=== PATIENT | female | born 1945 | race Caucasian/White ===

== ENCOUNTER 2021-03-08 15:39 | Inpatient (IN) ==
[2021-03-10] MEDS ORDERED: NON-FORMULARY MEDICATION 1 EACH EACH (Cefazolin [Ancef Premix 2 Gm/100 Ml] 2 GM/100 ML Bag IVPB SCH (15:45)
[2021-03-10] MEDS: *HR* Metformin 500 MG TABLET PO SCH (19:04)
[2021-03-10] MEDS: CeFAZolin 2,000 MG/120 ML BAG IVPB SCH (20:01)
[2021-03-10] MEDS: *HR* Enoxaparin 100 MG/ML SYRINGE SQ SCH (20:04)
[2021-03-11] MEDS: CeFAZolin 2,000 MG/120 ML BAG IVPB SCH ×3 (05:13→21:12)
[2021-03-11] MEDS: *HR* Enoxaparin 100 MG/ML SYRINGE SQ SCH ×2 (05:17→18:11)
[2021-03-11 06:13] LABS: Basophils % 0.3 %; Eosinophils # 0.1 K/mcL (0.0-0.6); Eosinophils % 2.4 %; Hematocrit 25.3 % (35.3-44.9); Hemoglobin 7.6 g/dL (11.5-15.4); Immature Granulocytes % 1.2 % (0-4); Lymphocytes # 1.1 K/mcL (0.6-4.6); Lymphocytes % 18.4 %; Mean Corpuscular Hemoglobin 30.4 pg (28.0-33.3); Mean Corpuscular Volume 101.2 fL (83.0-100.0); Mean Platelet Volume 9.6 fL (9.4-12.4); Monocytes # 0.3 K/mcL (0.0-1.3); Monocytes % 5.5 %; Neutrophils # 4.2 K/mcL (1.6-8.9); Platelet Count 199 K/mcL (140-400); Red Cell Distribution Width 28.8 % (11.5-14.5); Segmented Neutrophils % 72.2 %; White Blood Count 5.8 K/mcL (4.3-11.1)
[2021-03-11 06:32] LABS: BUN/Creatinine Ratio 34 (6-26); Blood Urea Nitrogen 14 mg/dL (8-23); Calcium 7.3 mg/dL (8.6-10.3); Carbon Dioxide 28 mEq/L (23-29); Chloride 102 mEq/L (98-107); Glucose 102 mg/dL (70-105); Osmolality,Calculated 285 (280-300); Potassium 3.3 mEq/L (3.5-5.1); Sodium 137 mEq/L (136-145); eGFR For African Americans > 60 (> 60); eGFR For Non-African Americans > 60 (> 60)
[2021-03-11] MEDS: *HR* Metformin 500 MG TABLET PO SCH ×2 (08:22→18:11)
[2021-03-11] MEDS: FLUoxetine 20 MG CAPSULE PO SCH (08:23)
[2021-03-11] MEDS: Furosemide 20 MG TABLET PO SCH (08:23)
[2021-03-11] MEDS: Metoprolol XL (24 HR) Succ 25 MG TAB.ER.24H PO SCH (08:23)
[2021-03-12] MEDS: CeFAZolin 2,000 MG/120 ML BAG IVPB SCH ×3 (04:46→20:27)
[2021-03-12] MEDS: *HR* Enoxaparin 100 MG/ML SYRINGE SQ SCH ×2 (04:47→17:24)
[2021-03-12 06:08] LABS: Hematocrit 24.8 % (35.3-44.9); Hemoglobin 7.2 g/dL (11.5-15.4); Mean Corpuscular Hemoglobin 30.1 pg (28.0-33.3); Mean Corpuscular Volume 103.8 fL (83.0-100.0); Mean Platelet Volume 9.8 fL (9.4-12.4); Platelet Count 192 K/mcL (140-400); Red Blood Count 2.39 M/mcL (3.82-4.97); Red Cell Distribution Width 28.1 % (11.5-14.5); White Blood Count 5.6 K/mcL (4.3-11.1)
[2021-03-12 08:30] LABS: Alanine Aminotransferase < 3 Units/L (7-52); Albumin 2.3 g/dL (3.5-5.7); Albumin/Globulin Ratio 0.8 (1.1-2.2); Alkaline Phosphatase 66 Units/L (34-104); Aspartate Amino Transferase 16 Units/L (13-39); BUN/Creatinine Ratio 40 (6-26); Blood Urea Nitrogen 17 mg/dL (8-23); Calcium 7.4 mg/dL (8.6-10.3); Carbon Dioxide 28 mEq/L (23-29); Chloride 102 mEq/L (98-107); Globulin 2.9 g/dL (2.4-3.5); Glucose 94 mg/dL (70-105); Magnesium 1.7 mg/dL (1.6-2.6); Osmolality,Calculated 283 (280-300); Potassium 3.8 mEq/L (3.5-5.1); Sodium 136 mEq/L (136-145); Total Protein 5.2 g/dL (6.4-8.9); eGFR For African Americans > 60 (> 60); eGFR For Non-African Americans > 60 (> 60)
[2021-03-12] MEDS: Furosemide 20 MG TABLET PO SCH (11:03)
[2021-03-12] MEDS: FLUoxetine 20 MG CAPSULE PO SCH (11:03)
[2021-03-12] MEDS: *HR* Metformin 500 MG TABLET PO SCH ×3 (11:03→16:35)
[2021-03-12] MEDS: Metoprolol XL (24 HR) Succ 25 MG TAB.ER.24H PO SCH (11:03)
[2021-03-13] MEDS: CeFAZolin 2,000 MG/120 ML BAG IVPB SCH ×3 (04:44→20:57)
[2021-03-13] MEDS: *HR* Enoxaparin 100 MG/ML SYRINGE SQ SCH ×2 (04:46→16:51)
[2021-03-13 07:25] LABS: Hematocrit 26.2 % (35.3-44.9); Hemoglobin 7.8 g/dL (11.5-15.4)
[2021-03-13 07:44] LABS: BUN/Creatinine Ratio 35 (6-26); Blood Urea Nitrogen 15 mg/dL (8-23); Calcium 7.6 mg/dL (8.6-10.3); Carbon Dioxide 28 mEq/L (23-29); Chloride 101 mEq/L (98-107); Glucose 99 mg/dL (70-105); Osmolality,Calculated 283 (280-300); Potassium 3.7 mEq/L (3.5-5.1); Sodium 136 mEq/L (136-145); eGFR For African Americans > 60 (> 60); eGFR For Non-African Americans > 60 (> 60)
[2021-03-13] MEDS: Metoprolol XL (24 HR) Succ 25 MG TAB.ER.24H PO SCH (09:17)
[2021-03-13] MEDS: FLUoxetine 20 MG CAPSULE PO SCH (09:17)
[2021-03-13] MEDS: *HR* Metformin 500 MG TABLET PO SCH ×2 (09:18→16:51)
[2021-03-13] MEDS: Lactobacillus 1 EACH CAP.SPRINK PO SCH (16:50)
[2021-03-13] MEDS: Ondansetron ODT 4 MG TAB.RAPDIS PO PRN (21:01)
[2021-03-14] MEDS: CeFAZolin 2,000 MG/120 ML BAG IVPB SCH ×3 (04:34→20:04)
[2021-03-14] MEDS: *HR* Enoxaparin 100 MG/ML SYRINGE SQ SCH ×2 (04:36→17:50)
[2021-03-14] MEDS: Lactobacillus 1 EACH CAP.SPRINK PO SCH (07:55)
[2021-03-14] MEDS: FLUoxetine 20 MG CAPSULE PO SCH (07:55)
[2021-03-14] MEDS: *HR* Metformin 500 MG TABLET PO SCH ×2 (07:55→14:48)
[2021-03-14] MEDS: Metoprolol XL (24 HR) Succ 25 MG TAB.ER.24H PO SCH (07:55)
[2021-03-14] MEDS ORDERED: Bisacodyl 10 MG RECTAL SUPPOSITORY RC ONE (18:00)
[2021-03-15] MEDS: CeFAZolin 2,000 MG/120 ML BAG IVPB SCH ×3 (04:21→20:08)
[2021-03-15] MEDS: *HR* Enoxaparin 100 MG/ML SYRINGE SQ SCH ×2 (04:21→17:29)
[2021-03-15 04:40] LABS: Basophils % 0.5 %; Eosinophils % 1.1 %; Hematocrit 27.1 % (35.3-44.9); Hemoglobin 8.1 g/dL (11.5-15.4); Immature Granulocytes % 1.1 % (0-4); Lymphocytes # 1.2 K/mcL (0.6-4.6); Lymphocytes % 31.7 %; Mean Corpuscular HGB Conc 29.9 g/dL (31.6-35.5); Mean Corpuscular Volume 103.8 fL (83.0-100.0); Mean Platelet Volume 9.8 fL (9.4-12.4); Monocytes # 0.4 K/mcL (0.0-1.3); Monocytes % 9.8 %; Nucleated Red Blood Cells 0.8 /100 WBC (0); Platelet Count 241 K/mcL (140-400); Red Blood Count 2.61 M/mcL (3.82-4.97); Red Cell Distribution Width 27.2 % (11.5-14.5); Segmented Neutrophils % 55.8 %; White Blood Count 3.7 K/mcL (4.3-11.1)
[2021-03-15 04:44] LABS: Neutrophils # 2.1 K/mcL (1.6-8.9)
[2021-03-15 04:47] LABS: Anisocytosis 1+ (Not Present); Platelet Estimate Normal (Normal)
[2021-03-15 04:54] LABS: BUN/Creatinine Ratio 40 (6-26); Blood Urea Nitrogen 14 mg/dL (8-23); Calcium 7.7 mg/dL (8.6-10.3); Carbon Dioxide 30 mEq/L (23-29); Chloride 99 mEq/L (98-107); Glucose 88 mg/dL (70-105); Osmolality,Calculated 278 (280-300); Potassium 3.6 mEq/L (3.5-5.1); Sodium 134 mEq/L (136-145); eGFR For African Americans > 60 (> 60); eGFR For Non-African Americans > 60 (> 60)
[2021-03-15] MEDS: *HR* Metformin 500 MG TABLET PO SCH ×2 (09:20→17:29)
[2021-03-15] MEDS: Metoprolol XL (24 HR) Succ 25 MG TAB.ER.24H PO SCH (10:29)
[2021-03-15] MEDS: Lactobacillus 1 EACH CAP.SPRINK PO SCH (10:29)
[2021-03-15] MEDS: FLUoxetine 20 MG CAPSULE PO SCH (10:29)
[2021-03-16] MEDS: CeFAZolin 2,000 MG/120 ML BAG IVPB SCH ×3 (04:48→20:32)
[2021-03-16] MEDS: *HR* Enoxaparin 100 MG/ML SYRINGE SQ SCH ×2 (04:48→17:26)
[2021-03-16] MEDS: FLUoxetine 20 MG CAPSULE PO SCH (09:20)
[2021-03-16] MEDS: Lactobacillus 1 EACH CAP.SPRINK PO SCH (09:20)
[2021-03-16] MEDS: Metoprolol XL (24 HR) Succ 25 MG TAB.ER.24H PO SCH (09:20)
[2021-03-16] MEDS: *HR* Metformin 500 MG TABLET PO SCH ×2 (09:21→17:29)
[2021-03-16] MEDS ORDERED: Ergocalciferol (VIT D2) 50,000 UNIT (1.25MG) CAP PO SCH (10:30)
[2021-03-16] MEDS: Sennosides 8.6 MG TABLET PO SCH ×2 (12:03→20:31)
[2021-03-16] MEDS ORDERED: Bisacodyl 10 MG RECTAL SUPPOSITORY RC PRN (14:08)
[2021-03-17] MEDS: *HR* Enoxaparin 100 MG/ML SYRINGE SQ SCH ×2 (04:34→16:09)
[2021-03-17] MEDS: CeFAZolin 2,000 MG/120 ML BAG IVPB SCH ×3 (04:36→20:08)
[2021-03-17] MEDS ORDERED: Patient Taking Own Medication 1 EACH PO SCH (09:00)
[2021-03-17] MEDS: Tiotropium 10 INH DOSE IH SCH (10:32)
[2021-03-17] MEDS: Lactobacillus 1 EACH CAP.SPRINK PO SCH (11:01)
[2021-03-17] MEDS: Sennosides 8.6 MG TABLET PO SCH ×2 (11:02→20:05)
[2021-03-17] MEDS: *HR* Metformin 500 MG TABLET PO SCH ×2 (11:02→16:36)
[2021-03-17] MEDS: Metoprolol XL (24 HR) Succ 25 MG TAB.ER.24H PO SCH (11:02)
[2021-03-17] MEDS: FLUoxetine 20 MG CAPSULE PO SCH (11:22)
[2021-03-17] MEDS: Bisacodyl 10 MG RECTAL SUPPOSITORY RC SCH (20:05)
[2021-03-18] MEDS: *HR* Enoxaparin 100 MG/ML SYRINGE SQ SCH ×2 (04:32→17:14)
[2021-03-18] MEDS: CeFAZolin 2,000 MG/120 ML BAG IVPB SCH ×3 (04:33→21:23)
[2021-03-18 05:59] LABS: Basophils % 0.5 %; Eosinophils % 0.5 %; Hematocrit 27.5 % (35.3-44.9); Hemoglobin 8.4 g/dL (11.5-15.4); Immature Granulocytes % 1.1 % (0-4); Lymphocytes # 1.1 K/mcL (0.6-4.6); Lymphocytes % 30.6 %; Mean Corpuscular HGB Conc 30.5 g/dL (31.6-35.5); Mean Corpuscular Hemoglobin 31.2 pg (28.0-33.3); Mean Corpuscular Volume 102.2 fL (83.0-100.0); Mean Platelet Volume 9.5 fL (9.4-12.4); Monocytes # 0.3 K/mcL (0.0-1.3); Monocytes % 7.8 %; Neutrophils # 2.2 K/mcL (1.6-8.9); Platelet Count 265 K/mcL (140-400); Red Blood Count 2.69 M/mcL (3.82-4.97); Red Cell Distribution Width 25.5 % (11.5-14.5); Segmented Neutrophils % 59.5 %; White Blood Count 3.7 K/mcL (4.3-11.1)
[2021-03-18 06:19] LABS: BUN/Creatinine Ratio 31 (6-26); Blood Urea Nitrogen 10 mg/dL (8-23); Carbon Dioxide 29 mEq/L (23-29); Chloride 100 mEq/L (98-107); Glucose 91 mg/dL (70-105); Osmolality,Calculated 281 (280-300); Potassium 2.9 mEq/L (3.5-5.1); Sodium 136 mEq/L (136-145); eGFR For African Americans > 60 (> 60); eGFR For Non-African Americans > 60 (> 60)
[2021-03-18] MEDS: *HR* Metformin 500 MG TABLET PO SCH ×2 (09:52→16:57)
[2021-03-18] MEDS: Sennosides 8.6 MG TABLET PO SCH ×2 (10:33→21:23)
[2021-03-18] MEDS: BuPROPion XL (24 HR) 150 MG TABLET PO SCH (10:33)
[2021-03-18] MEDS: Lactobacillus 1 EACH CAP.SPRINK PO SCH (10:33)
[2021-03-18] MEDS: Metoprolol XL (24 HR) Succ 25 MG TAB.ER.24H PO SCH (10:33)
[2021-03-18] MEDS: FLUoxetine 20 MG CAPSULE PO SCH (10:33)
[2021-03-18] MEDS: Bisacodyl 10 MG RECTAL SUPPOSITORY RC SCH (10:34)
[2021-03-18] MEDS: Tiotropium 10 INH DOSE IH SCH (11:04)
[2021-03-18] MEDS ORDERED: Preparation H Ointment 57 GM TUBE TP PRN (19:17)
[2021-03-19] MEDS: CeFAZolin 2,000 MG/120 ML BAG IVPB SCH ×3 (05:34→21:31)
[2021-03-19] MEDS: *HR* Enoxaparin 100 MG/ML SYRINGE SQ SCH ×2 (05:35→16:27)
[2021-03-19 06:32] LABS: Hematocrit 28.2 % (35.3-44.9); Hemoglobin 8.4 g/dL (11.5-15.4); Mean Corpuscular HGB Conc 29.8 g/dL (31.6-35.5); Mean Corpuscular Hemoglobin 31.1 pg (28.0-33.3); Mean Corpuscular Volume 104.4 fL (83.0-100.0); Mean Platelet Volume 8.7 fL (9.4-12.4); Platelet Count 322 K/mcL (140-400); Red Cell Distribution Width 25.2 % (11.5-14.5); White Blood Count 3.4 K/mcL (4.3-11.1)
[2021-03-19 07:03] LABS: Alanine Aminotransferase < 3 Units/L (7-52); Albumin 2.3 g/dL (3.5-5.7); Albumin/Globulin Ratio 0.9 (1.1-2.2); Alkaline Phosphatase 72 Units/L (34-104); Aspartate Amino Transferase 12 Units/L (13-39); BUN/Creatinine Ratio 29 (6-26); Bilirubin,Total 0.9 mg/dL (0.3-1.0); Blood Urea Nitrogen 11 mg/dL (8-23); Calcium 7.9 mg/dL (8.6-10.3); Carbon Dioxide 28 mEq/L (23-29); Chloride 101 mEq/L (98-107); Globulin 2.7 g/dL (2.4-3.5); Glucose 86 mg/dL (70-105); Magnesium 1.6 mg/dL (1.6-2.6); Osmolality,Calculated 281 (280-300); Sodium 136 mEq/L (136-145); eGFR For African Americans > 60 (> 60); eGFR For Non-African Americans > 60 (> 60)
[2021-03-19] MEDS ORDERED: Potassium Chloride Elixir 20 MEQ/15 ML UDC PO SCH (09:00)
[2021-03-19] MEDS: *HR* Metformin 500 MG TABLET PO SCH ×2 (09:07→15:30)
[2021-03-19] MEDS: Sennosides 8.6 MG TABLET PO SCH ×2 (09:12→21:32)
[2021-03-19] MEDS: Metoprolol XL (24 HR) Succ 25 MG TAB.ER.24H PO SCH (09:12)
[2021-03-19] MEDS: FLUoxetine 20 MG CAPSULE PO SCH (09:12)
[2021-03-19] MEDS: BuPROPion XL (24 HR) 150 MG TABLET PO SCH (09:12)
[2021-03-19] MEDS: Bisacodyl 10 MG RECTAL SUPPOSITORY RC SCH (09:13)
[2021-03-19] MEDS: Lactobacillus 1 EACH CAP.SPRINK PO SCH (09:13)
[2021-03-19] MEDS: Tiotropium 10 INH DOSE IH SCH (10:26)
[2021-03-19] MEDS: Potassium Chloride Elixir 20 MEQ/15 ML UDC PO SCH (11:50)
[2021-03-20] MEDS: CeFAZolin 2,000 MG/120 ML BAG IVPB SCH ×3 (04:51→20:09)
[2021-03-20] MEDS: *HR* Enoxaparin 100 MG/ML SYRINGE SQ SCH ×2 (04:52→17:28)
[2021-03-20] MEDS: Lactobacillus 1 EACH CAP.SPRINK PO SCH (09:42)
[2021-03-20] MEDS: BuPROPion XL (24 HR) 150 MG TABLET PO SCH (09:42)
[2021-03-20] MEDS: *HR* Metformin 500 MG TABLET PO SCH (09:43)
[2021-03-20] MEDS: Sennosides 8.6 MG TABLET PO SCH ×2 (09:43→20:08)
[2021-03-20] MEDS: Metoprolol XL (24 HR) Succ 25 MG TAB.ER.24H PO SCH (09:43)
[2021-03-20] MEDS: Potassium Chloride Elixir 20 MEQ/15 ML UDC PO SCH (09:43)
[2021-03-20] MEDS: FLUoxetine 20 MG CAPSULE PO SCH (09:43)
[2021-03-20] MEDS: Bisacodyl 10 MG RECTAL SUPPOSITORY RC SCH (09:47)
[2021-03-20] MEDS: Tiotropium 10 INH DOSE IH SCH (11:10)
[2021-03-21] MEDS: CeFAZolin 2,000 MG/120 ML BAG IVPB SCH ×3 (04:52→21:00)
[2021-03-21] MEDS: *HR* Enoxaparin 100 MG/ML SYRINGE SQ SCH ×2 (05:04→15:21)
[2021-03-21 05:21] LABS: Hematocrit 28.3 % (35.3-44.9); Hemoglobin 8.4 g/dL (11.5-15.4); Mean Corpuscular HGB Conc 29.7 g/dL (31.6-35.5); Mean Corpuscular Hemoglobin 31.3 pg (28.0-33.3); Mean Corpuscular Volume 105.6 fL (83.0-100.0); Mean Platelet Volume 9.3 fL (9.4-12.4); Platelet Count 296 K/mcL (140-400); Red Blood Count 2.68 M/mcL (3.82-4.97); Red Cell Distribution Width 24.3 % (11.5-14.5); White Blood Count 4.5 K/mcL (4.3-11.1)
[2021-03-21 09:19] LABS: Alanine Aminotransferase 2 Units/L (7-52); Albumin 2.3 g/dL (3.5-5.7); Albumin/Globulin Ratio 0.9 (1.1-2.2); Alkaline Phosphatase 66 Units/L (34-104); Aspartate Amino Transferase 11 Units/L (13-39); BUN/Creatinine Ratio 23 (6-26); Bilirubin,Total 0.8 mg/dL (0.3-1.0); Blood Urea Nitrogen 8 mg/dL (8-23); Calcium 7.9 mg/dL (8.6-10.3); Carbon Dioxide 30 mEq/L (23-29); Chloride 104 mEq/L (98-107); Globulin 2.5 g/dL (2.4-3.5); Glucose 82 mg/dL (70-105); Magnesium 1.4 mg/dL (1.6-2.6); Osmolality,Calculated 285 (280-300); Potassium 3.7 mEq/L (3.5-5.1); Sodium 139 mEq/L (136-145); Total Protein 4.8 g/dL (6.4-8.9); eGFR For African Americans > 60 (> 60); eGFR For Non-African Americans > 60 (> 60)
[2021-03-21] MEDS: Tiotropium 10 INH DOSE IH SCH (10:11)
[2021-03-21] MEDS: BuPROPion XL (24 HR) 150 MG TABLET PO SCH (10:28)
[2021-03-21] MEDS: Potassium Chloride Elixir 20 MEQ/15 ML UDC PO SCH (10:28)
[2021-03-21] MEDS: FLUoxetine 20 MG CAPSULE PO SCH (10:28)
[2021-03-21] MEDS: Bisacodyl 10 MG RECTAL SUPPOSITORY RC SCH (10:29)
[2021-03-21] MEDS: Lactobacillus 1 EACH CAP.SPRINK PO SCH (10:29)
[2021-03-21] MEDS: Sennosides 8.6 MG TABLET PO SCH ×2 (10:29→21:00)
[2021-03-21] MEDS: Metoprolol XL (24 HR) Succ 25 MG TAB.ER.24H PO SCH (10:29)
[2021-03-21 17:00] LABS: Bilirubin,Urine Negative (Negative); Blood,Urine Moderate (Negative); Clarity,Urine Clear (Clear); Color,Urine Yellow (Yellow); Glucose,Urine (UA) Normal (Normal); Ketones,Urine Negative (Negative); Leukocyte Esterase,Urine Small (Negative); Nitrite,Urine Negative (Negative); PH,Urine 7.5 pH Units (5.0-8.0); Protein,Urine 30 mg/dL (Neg-Trace); Specific Gravity,Urine 1.025 (1.010-1.025); Urobilinogen,Urine Normal (Normal)
[2021-03-21 17:02] LABS: RBC,Urine 30-50 per hpf (0-3); WBC,Urine 15-30 per hpf (0-3)
[2021-03-21 17:03] LABS: Bacteria,Urine Few per hpf (None-Few); Squamous Epithelial Cell,Urine Few per hpf (None-Few)
[2021-03-21] MEDS: Magnesium Oxide 400 MG TABLET PO SCH (21:00)
[2021-03-22] MEDS: CeFAZolin 2,000 MG/120 ML BAG IVPB SCH ×3 (05:22→21:40)
[2021-03-22] MEDS: BuPROPion XL (24 HR) 150 MG TABLET PO SCH (09:53)
[2021-03-22] MEDS: Potassium Chloride Elixir 20 MEQ/15 ML UDC PO SCH (09:54)
[2021-03-22] MEDS: Magnesium Oxide 400 MG TABLET PO SCH ×2 (09:55→21:40)
[2021-03-22] MEDS: Metoprolol XL (24 HR) Succ 25 MG TAB.ER.24H PO SCH (09:55)
[2021-03-22] MEDS: FLUoxetine 20 MG CAPSULE PO SCH (09:55)
[2021-03-22] MEDS: Lactobacillus 1 EACH CAP.SPRINK PO SCH (09:55)
[2021-03-22] MEDS: Sennosides 8.6 MG TABLET PO SCH ×2 (09:55→21:40)
[2021-03-22] MEDS: *HR* Enoxaparin 100 MG/ML SYRINGE SQ SCH ×2 (09:56→15:39)
[2021-03-22] MEDS: Bisacodyl 10 MG RECTAL SUPPOSITORY RC SCH (09:56)
[2021-03-22] MEDS: Tiotropium 10 INH DOSE IH SCH (10:20)
[2021-03-23] MEDS: *HR* Enoxaparin 100 MG/ML SYRINGE SQ SCH ×2 (05:11→16:40)
[2021-03-23] MEDS: CeFAZolin 2,000 MG/120 ML BAG IVPB SCH ×3 (05:12→20:05)
[2021-03-23] MEDS: Magnesium Oxide 400 MG TABLET PO SCH ×2 (08:27→19:53)
[2021-03-23] MEDS: Sennosides 8.6 MG TABLET PO SCH (08:27)
[2021-03-23] MEDS: FLUoxetine 20 MG CAPSULE PO SCH (08:27)
[2021-03-23] MEDS: Metoprolol XL (24 HR) Succ 25 MG TAB.ER.24H PO SCH (08:27)
[2021-03-23] MEDS: Lactobacillus 1 EACH CAP.SPRINK PO SCH (08:27)
[2021-03-23] MEDS: BuPROPion XL (24 HR) 150 MG TABLET PO SCH (08:27)
[2021-03-23] MEDS: Potassium Chloride Elixir 20 MEQ/15 ML UDC PO SCH (08:28)
[2021-03-23] MEDS: Bisacodyl 10 MG RECTAL SUPPOSITORY RC SCH (08:28)
[2021-03-23] MEDS: Tiotropium 10 INH DOSE IH SCH (09:51)
[2021-03-23] MEDS ORDERED: Sennosides 8.6 MG TABLET PO PRN (12:27)
[2021-03-23] MEDS ORDERED: Bisacodyl 10 MG RECTAL SUPPOSITORY RC PRN (12:27)
[2021-03-23] MEDS: Ergocalciferol (VIT D2) 50,000 UNIT (1.25MG) CAP PO SCH ×3 (19:05→19:23)
[2021-03-24 04:51] LABS: Hematocrit 30.8 % (35.3-44.9); Hemoglobin 9.2 g/dL (11.5-15.4); Mean Corpuscular HGB Conc 29.9 g/dL (31.6-35.5); Mean Corpuscular Hemoglobin 31.8 pg (28.0-33.3); Mean Corpuscular Volume 106.6 fL (83.0-100.0); Mean Platelet Volume 9.1 fL (9.4-12.4); Platelet Count 299 K/mcL (140-400); Red Blood Count 2.89 M/mcL (3.82-4.97); Red Cell Distribution Width 22.5 % (11.5-14.5); White Blood Count 5.1 K/mcL (4.3-11.1)
[2021-03-24] MEDS: *HR* Enoxaparin 100 MG/ML SYRINGE SQ SCH ×2 (05:00→16:52)
[2021-03-24] MEDS: CeFAZolin 2,000 MG/120 ML BAG IVPB SCH ×3 (05:01→20:09)
[2021-03-24 05:22] LABS: Alanine Aminotransferase 2 Units/L (7-52); Albumin 2.5 g/dL (3.5-5.7); Alkaline Phosphatase 67 Units/L (34-104); Aspartate Amino Transferase 11 Units/L (13-39); BUN/Creatinine Ratio 30 (6-26); Bilirubin,Total 0.7 mg/dL (0.3-1.0); Blood Urea Nitrogen 11 mg/dL (8-23); Calcium 7.7 mg/dL (8.6-10.3); Carbon Dioxide 28 mEq/L (23-29); Chloride 104 mEq/L (98-107); Globulin 2.5 g/dL (2.4-3.5); Glucose 96 mg/dL (70-105); Magnesium 1.5 mg/dL (1.6-2.6); Osmolality,Calculated 285 (280-300); Potassium 3.8 mEq/L (3.5-5.1); Sodium 138 mEq/L (136-145); eGFR For African Americans > 60 (> 60); eGFR For Non-African Americans > 60 (> 60)
[2021-03-24] MEDS: Metoprolol XL (24 HR) Succ 25 MG TAB.ER.24H PO SCH (09:56)
[2021-03-24] MEDS: FLUoxetine 20 MG CAPSULE PO SCH (09:56)
[2021-03-24] MEDS: Lactobacillus 1 EACH CAP.SPRINK PO SCH (09:57)
[2021-03-24] MEDS: Magnesium Oxide 400 MG TABLET PO SCH ×2 (09:57→20:07)
[2021-03-24] MEDS: BuPROPion XL (24 HR) 150 MG TABLET PO SCH (09:57)
[2021-03-24] MEDS: Tiotropium 10 INH DOSE IH SCH (11:46)
[2021-03-24] MEDS: Fluconazole 100 MG TABLET PO SCH (16:52)
[2021-03-25] MEDS: Acetaminophen 325 MG TABLET PO PRN (04:41)
[2021-03-25] MEDS: *HR* Enoxaparin 100 MG/ML SYRINGE SQ SCH ×2 (05:06→17:27)
[2021-03-25] MEDS: FLUoxetine 20 MG CAPSULE PO SCH (09:24)
[2021-03-25] MEDS: Lactobacillus 1 EACH CAP.SPRINK PO SCH (09:24)
[2021-03-25] MEDS: BuPROPion XL (24 HR) 150 MG TABLET PO SCH (09:24)
[2021-03-25] MEDS: Fluconazole 100 MG TABLET PO SCH (09:24)
[2021-03-25] MEDS: Magnesium Oxide 400 MG TABLET PO SCH ×2 (09:24→20:05)
[2021-03-25] MEDS: Metoprolol XL (24 HR) Succ 25 MG TAB.ER.24H PO SCH (09:25)
[2021-03-25] MEDS: Tiotropium 10 INH DOSE IH SCH (11:58)
[2021-03-25] MEDS: CeFAZolin 2,000 MG/120 ML BAG IVPB SCH (17:26)
[2021-03-26] MEDS: CeFAZolin 2,000 MG/120 ML BAG IVPB SCH ×2 (01:37→08:55)
[2021-03-26] MEDS: *HR* Enoxaparin 100 MG/ML SYRINGE SQ SCH ×2 (04:28→20:37)
[2021-03-26] MEDS: Acetaminophen 325 MG TABLET PO PRN (04:30)
[2021-03-26 05:59] LABS: Hematocrit 30.1 % (35.3-44.9); Mean Corpuscular HGB Conc 29.9 g/dL (31.6-35.5); Mean Corpuscular Hemoglobin 31.6 pg (28.0-33.3); Mean Corpuscular Volume 105.6 fL (83.0-100.0); Mean Platelet Volume 9.2 fL (9.4-12.4); Platelet Count 327 K/mcL (140-400); Red Blood Count 2.85 M/mcL (3.82-4.97); Red Cell Distribution Width 21.2 % (11.5-14.5); White Blood Count 5.3 K/mcL (4.3-11.1)
[2021-03-26 06:54] LABS: Alanine Aminotransferase 2 Units/L (7-52); Albumin 2.5 g/dL (3.5-5.7); Alkaline Phosphatase 65 Units/L (34-104); Aspartate Amino Transferase 12 Units/L (13-39); BUN/Creatinine Ratio 23 (6-26); Bilirubin,Total 0.5 mg/dL (0.3-1.0); Blood Urea Nitrogen 9 mg/dL (8-23); Calcium 7.8 mg/dL (8.6-10.3); Carbon Dioxide 29 mEq/L (23-29); Chloride 102 mEq/L (98-107); Globulin 2.5 g/dL (2.4-3.5); Glucose 137 mg/dL (70-105); Magnesium 1.6 mg/dL (1.6-2.6); Osmolality,Calculated 287 (280-300); Potassium 3.4 mEq/L (3.5-5.1); Sodium 138 mEq/L (136-145); eGFR For African Americans > 60 (> 60); eGFR For Non-African Americans > 60 (> 60)
[2021-03-26] MEDS: BuPROPion XL (24 HR) 150 MG TABLET PO SCH (08:55)
[2021-03-26] MEDS: Fluconazole 100 MG TABLET PO SCH (08:55)
[2021-03-26] MEDS: Lactobacillus 1 EACH CAP.SPRINK PO SCH (08:55)
[2021-03-26] MEDS: FLUoxetine 20 MG CAPSULE PO SCH (08:55)
[2021-03-26] MEDS: Metoprolol XL (24 HR) Succ 25 MG TAB.ER.24H PO SCH (08:55)
[2021-03-26] MEDS: Magnesium Oxide 400 MG TABLET PO SCH ×2 (08:55→20:26)
[2021-03-26] MEDS: Tiotropium 10 INH DOSE IH SCH (11:49)
[2021-03-26] MEDS ORDERED: CeFAZolin 2,000 MG/120 ML BAG IVPB SCH (14:00)
[2021-03-26] MEDS: ceFAZolin 1,000 MG in 0.9 % Sodium Chloride Mini Bag 100 ML IVPB SCH ×4 (14:04→22:51)
[2021-03-27] MEDS: Acetaminophen 325 MG TABLET PO PRN ×2 (03:58→16:30)
[2021-03-27] MEDS: ceFAZolin 1,000 MG in 0.9 % Sodium Chloride Mini Bag 100 ML IVPB SCH ×2 (06:04→06:31)
[2021-03-27] MEDS: *HR* Enoxaparin 100 MG/ML SYRINGE SQ SCH ×2 (06:05→16:30)
[2021-03-27 06:43] LABS: BUN/Creatinine Ratio 21 (6-26); Blood Urea Nitrogen 8 mg/dL (8-23); Calcium 8.2 mg/dL (8.6-10.3); Carbon Dioxide 31 mEq/L (23-29); Chloride 97 mEq/L (98-107); Potassium 3.6 mEq/L (3.5-5.1); Sodium 134 mEq/L (136-145); eGFR For African Americans > 60 (> 60); eGFR For Non-African Americans > 60 (> 60)
[2021-03-27 06:44] LABS: Glucose 95 mg/dL (70-105); Osmolality,Calculated 276 (280-300)
[2021-03-27] MEDS: Magnesium Oxide 400 MG TABLET PO SCH ×2 (07:46→21:19)
[2021-03-27] MEDS: BuPROPion XL (24 HR) 150 MG TABLET PO SCH (07:46)
[2021-03-27] MEDS: Fluconazole 100 MG TABLET PO SCH (07:46)
[2021-03-27] MEDS: FLUoxetine 20 MG CAPSULE PO SCH (07:46)
[2021-03-27] MEDS: Metoprolol XL (24 HR) Succ 25 MG TAB.ER.24H PO SCH (07:46)
[2021-03-27] MEDS: Lactobacillus 1 EACH CAP.SPRINK PO SCH (07:46)
[2021-03-27] MEDS: Tiotropium 10 INH DOSE IH SCH (09:11)
[2021-03-27] MEDS: DiphenhydraMINE CREAM 28.4 GM TUBE TP PRN (12:27)
[2021-03-27] MEDS: CeFAZolin 2,000 MG/120 ML BAG IVPB SCH ×2 (16:31→21:23)
[2021-03-28] MEDS: *HR* Enoxaparin 100 MG/ML SYRINGE SQ SCH ×2 (06:40→16:01)
[2021-03-28] MEDS: CeFAZolin 2,000 MG/120 ML BAG IVPB SCH ×3 (06:40→21:55)
[2021-03-28] MEDS: Metoprolol XL (24 HR) Succ 25 MG TAB.ER.24H PO SCH (08:14)
[2021-03-28] MEDS: Acetaminophen 325 MG TABLET PO PRN ×2 (08:14→15:58)
[2021-03-28] MEDS: FLUoxetine 20 MG CAPSULE PO SCH (08:14)
[2021-03-28] MEDS: BuPROPion XL (24 HR) 150 MG TABLET PO SCH (08:14)
[2021-03-28] MEDS: Lactobacillus 1 EACH CAP.SPRINK PO SCH (08:14)
[2021-03-28] MEDS: Magnesium Oxide 400 MG TABLET PO SCH ×2 (08:15→21:54)
[2021-03-28] MEDS: polyethylene glycoL 3350 17 GM POWD.PACK PO SCH (08:15)
[2021-03-28] MEDS: Patient Taking Own Medication 1 EACH PO SCH (08:16)
[2021-03-28] MEDS: Tiotropium 10 INH DOSE IH SCH (10:45)
[2021-03-29] MEDS: Acetaminophen 325 MG TABLET PO PRN (04:20)
[2021-03-29] MEDS: *HR* Enoxaparin 100 MG/ML SYRINGE SQ SCH ×2 (04:25→16:41)
[2021-03-29] MEDS: CeFAZolin 2,000 MG/120 ML BAG IVPB SCH ×3 (06:56→23:15)
[2021-03-29] MEDS: Lactobacillus 1 EACH CAP.SPRINK PO SCH (09:45)
[2021-03-29] MEDS: FLUoxetine 20 MG CAPSULE PO SCH (09:46)
[2021-03-29] MEDS: BuPROPion XL (24 HR) 150 MG TABLET PO SCH (09:46)
[2021-03-29] MEDS: Metoprolol XL (24 HR) Succ 25 MG TAB.ER.24H PO SCH (09:46)
[2021-03-29] MEDS: Magnesium Oxide 400 MG TABLET PO SCH ×2 (09:46→20:21)
[2021-03-29] MEDS: polyethylene glycoL 3350 17 GM POWD.PACK PO SCH (09:46)
[2021-03-29] MEDS: Patient Taking Own Medication 1 EACH PO SCH (09:47)
[2021-03-29] MEDS: Tiotropium 10 INH DOSE IH SCH (11:52)
[2021-03-30] MEDS: *HR* Enoxaparin 100 MG/ML SYRINGE SQ SCH ×2 (06:10→17:55)
[2021-03-30] MEDS: CeFAZolin 2,000 MG/120 ML BAG IVPB SCH ×3 (06:10→21:46)
[2021-03-30 06:30] LABS: Basophils # 0.1 K/mcL (0.0-0.2); Basophils % 1.4 %; Eosinophils # 0.2 K/mcL (0.0-0.6); Eosinophils % 3.2 %; Hemoglobin 9.3 g/dL (11.5-15.4); Immature Granulocytes % 0.7 % (0-4); Lymphocytes # 1.9 K/mcL (0.6-4.6); Lymphocytes % 32.4 %; Mean Corpuscular Volume 103.3 fL (83.0-100.0); Mean Platelet Volume 8.8 fL (9.4-12.4); Monocytes # 0.6 K/mcL (0.0-1.3); Monocytes % 9.8 %; Neutrophils # 3.1 K/mcL (1.6-8.9); Platelet Count 305 K/mcL (140-400); Red Cell Distribution Width 19.7 % (11.5-14.5); Segmented Neutrophils % 52.5 %; White Blood Count 5.9 K/mcL (4.3-11.1)
[2021-03-30 07:07] LABS: Alanine Aminotransferase 2 Units/L (7-52); Albumin 2.6 g/dL (3.5-5.7); Albumin/Globulin Ratio 1.1 (1.1-2.2); Alkaline Phosphatase 62 Units/L (34-104); Aspartate Amino Transferase 12 Units/L (13-39); BUN/Creatinine Ratio 22 (6-26); Bilirubin,Total 0.6 mg/dL (0.3-1.0); Blood Urea Nitrogen 8 mg/dL (8-23); Calcium 8.2 mg/dL (8.6-10.3); Carbon Dioxide 34 mEq/L (23-29); Chloride 100 mEq/L (98-107); Globulin 2.4 g/dL (2.4-3.5); Glucose 101 mg/dL (70-105); Osmolality,Calculated 286 (280-300); Potassium 3.3 mEq/L (3.5-5.1); Sodium 139 mEq/L (136-145); eGFR For African Americans > 60 (> 60); eGFR For Non-African Americans > 60 (> 60)
[2021-03-30] MEDS: polyethylene glycoL 3350 17 GM POWD.PACK PO SCH (08:54)
[2021-03-30] MEDS: Magnesium Oxide 400 MG TABLET PO SCH ×2 (08:55→21:44)
[2021-03-30] MEDS: FLUoxetine 20 MG CAPSULE PO SCH (08:55)
[2021-03-30] MEDS: Lactobacillus 1 EACH CAP.SPRINK PO SCH (08:55)
[2021-03-30] MEDS: BuPROPion XL (24 HR) 150 MG TABLET PO SCH (08:55)
[2021-03-30] MEDS: Metoprolol XL (24 HR) Succ 25 MG TAB.ER.24H PO SCH (08:55)
[2021-03-30] MEDS: Patient Taking Own Medication 1 EACH PO SCH (08:57)
[2021-03-30] MEDS: Tiotropium 10 INH DOSE IH SCH (10:16)
[2021-03-30] MEDS ORDERED: amLODIPine 5 MG TABLET PO ONE (20:01)
[2021-03-30] MEDS: Ergocalciferol (VIT D2) 50,000 UNIT (1.25MG) CAP PO SCH ×2 (21:40→21:44)
[2021-03-31] MEDS: *HR* Enoxaparin 100 MG/ML SYRINGE SQ SCH ×2 (06:18→18:10)
[2021-03-31] MEDS: CeFAZolin 2,000 MG/120 ML BAG IVPB SCH ×3 (06:19→23:07)
[2021-03-31] MEDS: BuPROPion XL (24 HR) 150 MG TABLET PO SCH (09:05)
[2021-03-31] MEDS: amLODIPine 5 MG TABLET PO SCH (09:05)
[2021-03-31] MEDS: Metoprolol XL (24 HR) Succ 25 MG TAB.ER.24H PO SCH (09:05)
[2021-03-31] MEDS: polyethylene glycoL 3350 17 GM POWD.PACK PO SCH (09:06)
[2021-03-31] MEDS: Lactobacillus 1 EACH CAP.SPRINK PO SCH (09:06)
[2021-03-31] MEDS: Patient Taking Own Medication 1 EACH PO SCH (09:06)
[2021-03-31] MEDS: Magnesium Oxide 400 MG TABLET PO SCH ×2 (09:06→21:10)
[2021-03-31] MEDS: FLUoxetine 20 MG CAPSULE PO SCH (09:06)
[2021-03-31] MEDS: Tiotropium 10 INH DOSE IH SCH (10:06)
[2021-03-31 15:42] LABS: Basophils # 0.1 K/mcL (0.0-0.2); Eosinophils # 0.2 K/mcL (0.0-0.6); Hematocrit 32.2 % (35.3-44.9); Hemoglobin 9.7 g/dL (11.5-15.4); Immature Granulocytes % 0.4 % (0-4); Lymphocytes # 2.5 K/mcL (0.6-4.6); Lymphocytes % 36.3 %; Mean Corpuscular HGB Conc 30.1 g/dL (31.6-35.5); Mean Corpuscular Hemoglobin 31.4 pg (28.0-33.3); Mean Corpuscular Volume 104.2 fL (83.0-100.0); Mean Platelet Volume 8.7 fL (9.4-12.4); Monocytes # 0.6 K/mcL (0.0-1.3); Neutrophils # 3.5 K/mcL (1.6-8.9); Platelet Count 278 K/mcL (140-400); Red Blood Count 3.09 M/mcL (3.82-4.97); Red Cell Distribution Width 19.4 % (11.5-14.5); Segmented Neutrophils % 50.3 %; White Blood Count 6.9 K/mcL (4.3-11.1)
[2021-03-31 15:57] LABS: BUN/Creatinine Ratio 21 (6-26); Blood Urea Nitrogen 9 mg/dL (8-23); Calcium 8.2 mg/dL (8.6-10.3); Carbon Dioxide 31 mEq/L (23-29); Chloride 100 mEq/L (98-107); Glucose 127 mg/dL (70-105); Magnesium 1.8 mg/dL (1.6-2.6); Osmolality,Calculated 286 (280-300); Potassium 3.5 mEq/L (3.5-5.1); Sodium 138 mEq/L (136-145); eGFR For African Americans > 60 (> 60); eGFR For Non-African Americans > 60 (> 60)
[2021-04-01] MEDS: Acetaminophen 325 MG TABLET PO PRN ×3 (01:44→20:22)
[2021-04-01] MEDS: CeFAZolin 2,000 MG/120 ML BAG IVPB SCH ×3 (06:46→23:29)
[2021-04-01] MEDS: *HR* Enoxaparin 100 MG/ML SYRINGE SQ SCH ×2 (06:47→17:59)
[2021-04-01] MEDS: Metoprolol XL (24 HR) Succ 25 MG TAB.ER.24H PO SCH (09:23)
[2021-04-01] MEDS: BuPROPion XL (24 HR) 150 MG TABLET PO SCH (09:23)
[2021-04-01] MEDS: FLUoxetine 20 MG CAPSULE PO SCH (09:24)
[2021-04-01] MEDS: polyethylene glycoL 3350 17 GM POWD.PACK PO SCH (09:24)
[2021-04-01] MEDS: Lactobacillus 1 EACH CAP.SPRINK PO SCH (09:24)
[2021-04-01] MEDS: Magnesium Oxide 400 MG TABLET PO SCH ×2 (09:24→20:22)
[2021-04-01] MEDS: amLODIPine 5 MG TABLET PO SCH (09:24)
[2021-04-01] MEDS: Patient Taking Own Medication 1 EACH PO SCH (09:25)
[2021-04-01] MEDS: Tiotropium 10 INH DOSE IH SCH (10:43)
[2021-04-02] MEDS: CeFAZolin 2,000 MG/120 ML BAG IVPB SCH ×3 (06:08→22:52)
[2021-04-02] MEDS: *HR* Enoxaparin 100 MG/ML SYRINGE SQ SCH ×2 (06:08→16:33)
[2021-04-02] MEDS: Lactobacillus 1 EACH CAP.SPRINK PO SCH (07:41)
[2021-04-02] MEDS: BuPROPion XL (24 HR) 150 MG TABLET PO SCH (07:42)
[2021-04-02] MEDS: FLUoxetine 20 MG CAPSULE PO SCH (07:42)
[2021-04-02] MEDS: amLODIPine 5 MG TABLET PO SCH (07:42)
[2021-04-02] MEDS: polyethylene glycoL 3350 17 GM POWD.PACK PO SCH (07:42)
[2021-04-02] MEDS: Metoprolol XL (24 HR) Succ 25 MG TAB.ER.24H PO SCH (07:42)
[2021-04-02] MEDS: Magnesium Oxide 400 MG TABLET PO SCH ×2 (07:43→22:51)
[2021-04-02] MEDS: Patient Taking Own Medication 1 EACH PO SCH (07:44)
[2021-04-02] MEDS: Tiotropium 10 INH DOSE IH SCH (10:11)
[2021-04-02] MEDS: Acetaminophen 325 MG TABLET PO PRN (22:52)
[2021-04-03] MEDS: CeFAZolin 2,000 MG/120 ML BAG IVPB SCH ×3 (06:15→23:31)
[2021-04-03] MEDS: *HR* Enoxaparin 100 MG/ML SYRINGE SQ SCH ×2 (06:15→15:18)
[2021-04-03] MEDS: amLODIPine 5 MG TABLET PO SCH (07:52)
[2021-04-03] MEDS: FLUoxetine 20 MG CAPSULE PO SCH (07:52)
[2021-04-03] MEDS: Lactobacillus 1 EACH CAP.SPRINK PO SCH (07:52)
[2021-04-03] MEDS: Metoprolol XL (24 HR) Succ 25 MG TAB.ER.24H PO SCH (07:52)
[2021-04-03] MEDS: Magnesium Oxide 400 MG TABLET PO SCH ×2 (07:52→20:38)
[2021-04-03] MEDS: BuPROPion XL (24 HR) 150 MG TABLET PO SCH (07:52)
[2021-04-03] MEDS: polyethylene glycoL 3350 17 GM POWD.PACK PO SCH (07:53)
[2021-04-03] MEDS: Patient Taking Own Medication 1 EACH PO SCH (07:54)
[2021-04-03] MEDS: Tiotropium 10 INH DOSE IH SCH (10:14)
[2021-04-03] MEDS: Acetaminophen 325 MG TABLET PO PRN (23:31)
[2021-04-04 04:59] LABS: Hematocrit 31.5 % (35.3-44.9); Hemoglobin 9.6 g/dL (11.5-15.4); Mean Corpuscular HGB Conc 30.5 g/dL (31.6-35.5); Mean Corpuscular Hemoglobin 31.4 pg (28.0-33.3); Mean Corpuscular Volume 102.9 fL (83.0-100.0); Mean Platelet Volume 9.3 fL (9.4-12.4); Platelet Count 256 K/mcL (140-400); Red Blood Count 3.06 M/mcL (3.82-4.97); Red Cell Distribution Width 18.3 % (11.5-14.5); White Blood Count 6.1 K/mcL (4.3-11.1)
[2021-04-04 05:33] LABS: Alanine Aminotransferase 2 Units/L (7-52); Albumin 2.8 g/dL (3.5-5.7); Alkaline Phosphatase 59 Units/L (34-104); Aspartate Amino Transferase 11 Units/L (13-39); BUN/Creatinine Ratio 19 (6-26); Bilirubin,Total 0.6 mg/dL (0.3-1.0); Blood Urea Nitrogen 8 mg/dL (8-23); Calcium 8.4 mg/dL (8.6-10.3); Carbon Dioxide 32 mEq/L (23-29); Chloride 101 mEq/L (98-107); Globulin 2.7 g/dL (2.4-3.5); Glucose 92 mg/dL (70-105); Magnesium 1.8 mg/dL (1.6-2.6); Osmolality,Calculated 284 (280-300); Potassium 3.2 mEq/L (3.5-5.1); Sodium 138 mEq/L (136-145); Total Protein 5.5 g/dL (6.4-8.9); eGFR For African Americans > 60 (> 60); eGFR For Non-African Americans > 60 (> 60)
[2021-04-04] MEDS: *HR* Enoxaparin 100 MG/ML SYRINGE SQ SCH ×2 (06:22→18:05)
[2021-04-04] MEDS: CeFAZolin 2,000 MG/120 ML BAG IVPB SCH ×3 (06:23→22:41)
[2021-04-04] MEDS: Lactobacillus 1 EACH CAP.SPRINK PO SCH (09:17)
[2021-04-04] MEDS: BuPROPion XL (24 HR) 150 MG TABLET PO SCH (09:17)
[2021-04-04] MEDS: Magnesium Oxide 400 MG TABLET PO SCH ×2 (09:18→22:42)
[2021-04-04] MEDS: FLUoxetine 20 MG CAPSULE PO SCH (09:18)
[2021-04-04] MEDS: polyethylene glycoL 3350 17 GM POWD.PACK PO SCH (09:18)
[2021-04-04] MEDS: amLODIPine 5 MG TABLET PO SCH (09:18)
[2021-04-04] MEDS: Metoprolol XL (24 HR) Succ 25 MG TAB.ER.24H PO SCH (09:19)
[2021-04-04] MEDS: Patient Taking Own Medication 1 EACH PO SCH (09:19)
[2021-04-04] MEDS: Tiotropium 10 INH DOSE IH SCH (10:36)
[2021-04-04] MEDS: Acetaminophen 325 MG TABLET PO PRN (22:41)
[2021-04-05 04:24] LABS: Basophils # 0.1 K/mcL (0.0-0.2); Basophils % 1.2 %; Eosinophils # 0.3 K/mcL (0.0-0.6); Eosinophils % 5.5 %; Hematocrit 32.7 % (35.3-44.9); Hemoglobin 9.9 g/dL (11.5-15.4); Immature Granulocytes % 0.3 % (0-4); Lymphocytes # 2.3 K/mcL (0.6-4.6); Lymphocytes % 39.4 %; Mean Corpuscular HGB Conc 30.3 g/dL (31.6-35.5); Mean Corpuscular Hemoglobin 31.4 pg (28.0-33.3); Mean Corpuscular Volume 103.8 fL (83.0-100.0); Mean Platelet Volume 8.9 fL (9.4-12.4); Monocytes # 0.6 K/mcL (0.0-1.3); Monocytes % 10.6 %; Neutrophils # 2.5 K/mcL (1.6-8.9); Platelet Count 263 K/mcL (140-400); Red Blood Count 3.15 M/mcL (3.82-4.97); White Blood Count 5.8 K/mcL (4.3-11.1)
[2021-04-05 04:39] LABS: BUN/Creatinine Ratio 19 (6-26); Blood Urea Nitrogen 8 mg/dL (8-23); eGFR For African Americans > 60 (> 60); eGFR For Non-African Americans > 60 (> 60)
[2021-04-05] MEDS: *HR* Enoxaparin 100 MG/ML SYRINGE SQ SCH ×2 (06:22→16:47)
[2021-04-05] MEDS: CeFAZolin 2,000 MG/120 ML BAG IVPB SCH ×3 (06:22→22:57)
[2021-04-05 08:13] LABS: C-Reactive Protein < 5 mg/L (Less than 10)
[2021-04-05] MEDS: Lactobacillus 1 EACH CAP.SPRINK PO SCH (09:43)
[2021-04-05] MEDS: FLUoxetine 20 MG CAPSULE PO SCH (09:43)
[2021-04-05] MEDS: Magnesium Oxide 400 MG TABLET PO SCH ×2 (09:43→20:54)
[2021-04-05] MEDS: BuPROPion XL (24 HR) 150 MG TABLET PO SCH (09:43)
[2021-04-05] MEDS: Metoprolol XL (24 HR) Succ 25 MG TAB.ER.24H PO SCH (09:43)
[2021-04-05] MEDS: amLODIPine 5 MG TABLET PO SCH (09:43)
[2021-04-05] MEDS: polyethylene glycoL 3350 17 GM POWD.PACK PO SCH (09:44)
[2021-04-05] MEDS: Patient Taking Own Medication 1 EACH PO SCH (09:48)
[2021-04-05] MEDS: Tiotropium 10 INH DOSE IH SCH (10:06)
[2021-04-05] MEDS: DiphenhydraMINE CREAM 28.4 GM TUBE TP PRN (22:57)
[2021-04-06] MEDS: Acetaminophen 325 MG TABLET PO PRN ×2 (01:35→22:15)
[2021-04-06] MEDS: *HR* Enoxaparin 100 MG/ML SYRINGE SQ SCH ×2 (05:49→16:50)
[2021-04-06] MEDS: CeFAZolin 2,000 MG/120 ML BAG IVPB SCH ×3 (05:50→22:09)
[2021-04-06] MEDS: Tiotropium 10 INH DOSE IH SCH (08:39)
[2021-04-06] MEDS: Lactobacillus 1 EACH CAP.SPRINK PO SCH (08:56)
[2021-04-06] MEDS: amLODIPine 5 MG TABLET PO SCH (08:56)
[2021-04-06] MEDS: FLUoxetine 20 MG CAPSULE PO SCH (08:56)
[2021-04-06] MEDS: Metoprolol XL (24 HR) Succ 25 MG TAB.ER.24H PO SCH (08:56)
[2021-04-06] MEDS: BuPROPion XL (24 HR) 150 MG TABLET PO SCH (08:57)
[2021-04-06] MEDS: Magnesium Oxide 400 MG TABLET PO SCH ×2 (08:57→22:11)
[2021-04-06] MEDS: polyethylene glycoL 3350 17 GM POWD.PACK PO SCH (08:57)
[2021-04-06] MEDS: Patient Taking Own Medication 1 EACH PO SCH (09:01)
[2021-04-06] MEDS: Ergocalciferol (VIT D2) 50,000 UNIT (1.25MG) CAP PO SCH ×2 (18:09→18:10)
[2021-04-07] MEDS: *HR* Enoxaparin 100 MG/ML SYRINGE SQ SCH ×2 (05:26→16:16)
[2021-04-07] MEDS: CeFAZolin 2,000 MG/120 ML BAG IVPB SCH ×3 (05:26→21:54)
[2021-04-07] MEDS: Metoprolol XL (24 HR) Succ 25 MG TAB.ER.24H PO SCH (09:22)
[2021-04-07] MEDS: Magnesium Oxide 400 MG TABLET PO SCH ×2 (09:23→21:53)
[2021-04-07] MEDS: amLODIPine 5 MG TABLET PO SCH (09:23)
[2021-04-07] MEDS: BuPROPion XL (24 HR) 150 MG TABLET PO SCH (09:23)
[2021-04-07] MEDS: Patient Taking Own Medication 1 EACH PO SCH (09:23)
[2021-04-07] MEDS: FLUoxetine 20 MG CAPSULE PO SCH (09:23)
[2021-04-07] MEDS: polyethylene glycoL 3350 17 GM POWD.PACK PO SCH (09:23)
[2021-04-07] MEDS: Lactobacillus 1 EACH CAP.SPRINK PO SCH (09:23)
[2021-04-07] MEDS: Tiotropium 10 INH DOSE IH SCH (09:55)
[2021-04-07] MEDS: Acetaminophen 325 MG TABLET PO PRN (21:53)
[2021-04-08] MEDS: *HR* Enoxaparin 100 MG/ML SYRINGE SQ SCH ×2 (03:58→16:41)
[2021-04-08] MEDS: CeFAZolin 2,000 MG/120 ML BAG IVPB SCH ×3 (04:00→23:34)
[2021-04-08] MEDS: Lactobacillus 1 EACH CAP.SPRINK PO SCH (09:17)
[2021-04-08] MEDS: BuPROPion XL (24 HR) 150 MG TABLET PO SCH (09:18)
[2021-04-08] MEDS: Metoprolol XL (24 HR) Succ 25 MG TAB.ER.24H PO SCH (09:18)
[2021-04-08] MEDS: polyethylene glycoL 3350 17 GM POWD.PACK PO SCH (09:18)
[2021-04-08] MEDS: amLODIPine 5 MG TABLET PO SCH (09:18)
[2021-04-08] MEDS: Magnesium Oxide 400 MG TABLET PO SCH ×2 (09:18→23:33)
[2021-04-08] MEDS: FLUoxetine 20 MG CAPSULE PO SCH (09:18)
[2021-04-08] MEDS: Patient Taking Own Medication 1 EACH PO SCH (09:19)
[2021-04-08] MEDS: Tiotropium 10 INH DOSE IH SCH (10:48)
[2021-04-08] MEDS: Acetaminophen 325 MG TABLET PO PRN (23:33)
[2021-04-09] MEDS: *HR* Enoxaparin 100 MG/ML SYRINGE SQ SCH ×2 (06:39→16:06)
[2021-04-09] MEDS: CeFAZolin 2,000 MG/120 ML BAG IVPB SCH ×3 (06:40→21:56)
[2021-04-09] MEDS: Tiotropium 10 INH DOSE IH SCH (09:42)
[2021-04-09] MEDS: Metoprolol XL (24 HR) Succ 25 MG TAB.ER.24H PO SCH (09:54)
[2021-04-09] MEDS: Lactobacillus 1 EACH CAP.SPRINK PO SCH (09:54)
[2021-04-09] MEDS: Patient Taking Own Medication 1 EACH PO SCH (09:55)
[2021-04-09] MEDS: amLODIPine 5 MG TABLET PO SCH (09:55)
[2021-04-09] MEDS: FLUoxetine 20 MG CAPSULE PO SCH (09:55)
[2021-04-09] MEDS: BuPROPion XL (24 HR) 150 MG TABLET PO SCH (09:55)
[2021-04-09] MEDS: polyethylene glycoL 3350 17 GM POWD.PACK PO SCH (09:55)
[2021-04-09] MEDS: Magnesium Oxide 400 MG TABLET PO SCH ×2 (09:55→21:55)
[2021-04-09] MEDS: Acetaminophen 325 MG TABLET PO PRN (21:55)
[2021-04-10] MEDS: *HR* Enoxaparin 100 MG/ML SYRINGE SQ SCH ×2 (06:43→16:34)
[2021-04-10] MEDS: CeFAZolin 2,000 MG/120 ML BAG IVPB SCH ×2 (06:44→16:21)
[2021-04-10] MEDS: Lactobacillus 1 EACH CAP.SPRINK PO SCH (08:57)
[2021-04-10] MEDS: BuPROPion XL (24 HR) 150 MG TABLET PO SCH (08:57)
[2021-04-10] MEDS: polyethylene glycoL 3350 17 GM POWD.PACK PO SCH (08:57)
[2021-04-10] MEDS: FLUoxetine 20 MG CAPSULE PO SCH (08:57)
[2021-04-10] MEDS: amLODIPine 5 MG TABLET PO SCH (08:57)
[2021-04-10] MEDS: Metoprolol XL (24 HR) Succ 25 MG TAB.ER.24H PO SCH (08:57)
[2021-04-10] MEDS: Magnesium Oxide 400 MG TABLET PO SCH ×2 (08:57→22:07)
[2021-04-10] MEDS: Patient Taking Own Medication 1 EACH PO SCH (08:58)
[2021-04-10] MEDS: Tiotropium 10 INH DOSE IH SCH (09:40)
[2021-04-10] MEDS: ceFAZolin 2,000 MG in 0.9 % Sodium Chloride 100 ML IVPB SCH ×2 (16:33→22:08)
[2021-04-10] MEDS: Acetaminophen 325 MG TABLET PO PRN (22:07)
[2021-04-11] MEDS: ceFAZolin 2,000 MG in 0.9 % Sodium Chloride 100 ML IVPB SCH ×3 (05:33→21:51)
[2021-04-11] MEDS: *HR* Enoxaparin 100 MG/ML SYRINGE SQ SCH ×2 (05:33→16:30)
[2021-04-11] MEDS: polyethylene glycoL 3350 17 GM POWD.PACK PO SCH (09:16)
[2021-04-11] MEDS: amLODIPine 5 MG TABLET PO SCH (09:17)
[2021-04-11] MEDS: BuPROPion XL (24 HR) 150 MG TABLET PO SCH (09:17)
[2021-04-11] MEDS: Lactobacillus 1 EACH CAP.SPRINK PO SCH (09:17)
[2021-04-11] MEDS: FLUoxetine 20 MG CAPSULE PO SCH (09:17)
[2021-04-11] MEDS: Magnesium Oxide 400 MG TABLET PO SCH ×2 (09:17→21:50)
[2021-04-11] MEDS: Metoprolol XL (24 HR) Succ 25 MG TAB.ER.24H PO SCH (09:17)
[2021-04-11] MEDS: Patient Taking Own Medication 1 EACH PO SCH (09:18)
[2021-04-11] MEDS: Ondansetron ODT 4 MG TAB.RAPDIS PO PRN (09:20)
[2021-04-11] MEDS: Tiotropium 10 INH DOSE IH SCH (10:48)
[2021-04-11] MEDS: Acetaminophen 325 MG TABLET PO PRN (21:50)
[2021-04-12] MEDS: ceFAZolin 2,000 MG in 0.9 % Sodium Chloride 100 ML IVPB SCH ×2 (05:00→14:19)
[2021-04-12] MEDS: *HR* Enoxaparin 100 MG/ML SYRINGE SQ SCH ×2 (05:01→18:43)
[2021-04-12 06:50] LABS: Basophils # 0.1 K/mcL (0.0-0.2); Eosinophils # 0.5 K/mcL (0.0-0.6); Eosinophils % 7.2 %; Hematocrit 32.1 % (35.3-44.9); Hemoglobin 9.6 g/dL (11.5-15.4); Immature Granulocytes % 0.5 % (0-4); Lymphocytes # 2.5 K/mcL (0.6-4.6); Lymphocytes % 39.3 %; Mean Corpuscular HGB Conc 29.9 g/dL (31.6-35.5); Mean Corpuscular Hemoglobin 31.1 pg (28.0-33.3); Mean Corpuscular Volume 103.9 fL (83.0-100.0); Mean Platelet Volume 9.1 fL (9.4-12.4); Monocytes # 0.7 K/mcL (0.0-1.3); Monocytes % 11.3 %; Neutrophils # 2.6 K/mcL (1.6-8.9); Platelet Count 307 K/mcL (140-400); Red Blood Count 3.09 M/mcL (3.82-4.97); Red Cell Distribution Width 16.8 % (11.5-14.5); Segmented Neutrophils % 40.7 %; White Blood Count 6.3 K/mcL (4.3-11.1)
[2021-04-12 07:09] LABS: BUN/Creatinine Ratio 20 (6-26); Blood Urea Nitrogen 10 mg/dL (8-23); eGFR For African Americans > 60 (> 60); eGFR For Non-African Americans > 60 (> 60)
[2021-04-12 09:25] LABS: C-Reactive Protein < 5 mg/L (Less than 10)
[2021-04-12] MEDS: BuPROPion XL (24 HR) 150 MG TABLET PO SCH (09:53)
[2021-04-12] MEDS: Lactobacillus 1 EACH CAP.SPRINK PO SCH (09:53)
[2021-04-12] MEDS: Magnesium Oxide 400 MG TABLET PO SCH ×2 (09:53→21:32)
[2021-04-12] MEDS: FLUoxetine 20 MG CAPSULE PO SCH (09:53)
[2021-04-12] MEDS: Metoprolol XL (24 HR) Succ 25 MG TAB.ER.24H PO SCH (09:53)
[2021-04-12] MEDS: amLODIPine 5 MG TABLET PO SCH (09:53)
[2021-04-12] MEDS: Acetaminophen 325 MG TABLET PO PRN ×2 (09:54→21:32)
[2021-04-12] MEDS: polyethylene glycoL 3350 17 GM POWD.PACK PO SCH (09:59)
[2021-04-12] MEDS: Patient Taking Own Medication 1 EACH PO SCH (12:22)
[2021-04-12] MEDS: Tiotropium 10 INH DOSE IH SCH (12:46)
[2021-04-13] MEDS: *HR* Enoxaparin 100 MG/ML SYRINGE SQ SCH ×2 (06:12→17:30)
[2021-04-13] MEDS: Tiotropium 10 INH DOSE IH SCH (09:02)
[2021-04-13] MEDS: FLUoxetine 20 MG CAPSULE PO SCH (09:15)
[2021-04-13] MEDS: Lactobacillus 1 EACH CAP.SPRINK PO SCH (09:15)
[2021-04-13] MEDS: BuPROPion XL (24 HR) 150 MG TABLET PO SCH (09:15)
[2021-04-13] MEDS: polyethylene glycoL 3350 17 GM POWD.PACK PO SCH (09:16)
[2021-04-13] MEDS: Magnesium Oxide 400 MG TABLET PO SCH ×2 (09:16→21:02)
[2021-04-13] MEDS: Metoprolol XL (24 HR) Succ 25 MG TAB.ER.24H PO SCH (09:16)
[2021-04-13] MEDS: amLODIPine 5 MG TABLET PO SCH (09:16)
[2021-04-13] MEDS: Patient Taking Own Medication 1 EACH PO SCH (09:17)
[2021-04-13] MEDS: Ergocalciferol (VIT D2) 50,000 UNIT (1.25MG) CAP PO SCH ×2 (21:01→21:37)
[2021-04-13] MEDS: Acetaminophen 325 MG TABLET PO PRN (21:01)
[2021-04-14] MEDS: amLODIPine 5 MG TABLET PO SCH (09:38)
[2021-04-14] MEDS: BuPROPion XL (24 HR) 150 MG TABLET PO SCH (09:38)
[2021-04-14] MEDS: Magnesium Oxide 400 MG TABLET PO SCH ×2 (09:38→19:30)
[2021-04-14] MEDS: polyethylene glycoL 3350 17 GM POWD.PACK PO SCH (09:38)
[2021-04-14] MEDS: FLUoxetine 20 MG CAPSULE PO SCH (09:38)
[2021-04-14] MEDS: Lactobacillus 1 EACH CAP.SPRINK PO SCH (09:38)
[2021-04-14] MEDS: Metoprolol XL (24 HR) Succ 25 MG TAB.ER.24H PO SCH (09:38)
[2021-04-14] MEDS: Patient Taking Own Medication 1 EACH PO SCH (09:39)
[2021-04-14] MEDS: Tiotropium 10 INH DOSE IH SCH (11:42)
[2021-04-15] MEDS: polyethylene glycoL 3350 17 GM POWD.PACK PO SCH (09:10)
[2021-04-15] MEDS: Lactobacillus 1 EACH CAP.SPRINK PO SCH (09:12)
[2021-04-15] MEDS: Patient Taking Own Medication 1 EACH PO SCH (09:12)
[2021-04-15] MEDS: Magnesium Oxide 400 MG TABLET PO SCH ×2 (09:12→21:06)
[2021-04-15] MEDS: amLODIPine 5 MG TABLET PO SCH (09:12)
[2021-04-15] MEDS: BuPROPion XL (24 HR) 150 MG TABLET PO SCH (09:12)
[2021-04-15] MEDS: Metoprolol XL (24 HR) Succ 25 MG TAB.ER.24H PO SCH (09:12)
[2021-04-15] MEDS: FLUoxetine 20 MG CAPSULE PO SCH (09:12)
[2021-04-15] MEDS: Tiotropium 10 INH DOSE IH SCH (10:12)
[2021-04-15] MEDS: Nitroglycerin 0.4 MG TAB.SUBL SL PRN ×3 (11:02→11:34)
[2021-04-15 11:30] LABS: Basophils # 0.1 K/mcL (0.0-0.2); Basophils % 0.7 %; Eosinophils # 0.4 K/mcL (0.0-0.6); Eosinophils % 4.8 %; Hematocrit 34.2 % (35.3-44.9); Hemoglobin 10.5 g/dL (11.5-15.4); Immature Granulocytes % 0.4 % (0-4); Lymphocytes # 2.5 K/mcL (0.6-4.6); Lymphocytes % 33.8 %; Mean Corpuscular HGB Conc 30.7 g/dL (31.6-35.5); Mean Corpuscular Hemoglobin 31.2 pg (28.0-33.3); Mean Corpuscular Volume 101.5 fL (83.0-100.0); Mean Platelet Volume 8.8 fL (9.4-12.4); Monocytes # 0.9 K/mcL (0.0-1.3); Monocytes % 11.5 %; Neutrophils # 3.6 K/mcL (1.6-8.9); Platelet Count 376 K/mcL (140-400); Red Blood Count 3.37 M/mcL (3.82-4.97); Red Cell Distribution Width 16.3 % (11.5-14.5); Segmented Neutrophils % 48.8 %; White Blood Count 7.5 K/mcL (4.3-11.1)
[2021-04-15] MEDS ORDERED: Mag Hydrox/Al Hydrox/Simeth 30 ML UDC PO PRN (11:36)
[2021-04-15 11:42] LABS: INR 1.1; Prothrombin Time 12.1 Seconds (9.4-12.1)
[2021-04-15 11:43] LABS: Alanine Aminotransferase < 3 Units/L (7-52); Albumin/Globulin Ratio 1.1 (1.1-2.2); Alkaline Phosphatase 64 Units/L (34-104); Aspartate Amino Transferase 12 Units/L (13-39); BUN/Creatinine Ratio 17 (6-26); Bilirubin,Total 0.7 mg/dL (0.3-1.0); Blood Urea Nitrogen 9 mg/dL (8-23); Calcium 8.6 mg/dL (8.6-10.3); Carbon Dioxide 27 mEq/L (23-29); Chloride 99 mEq/L (98-107); Globulin 2.7 g/dL (2.4-3.5); Glucose 103 mg/dL (70-105); Osmolality,Calculated 279 (280-300); Potassium 4.2 mEq/L (3.5-5.1); Sodium 135 mEq/L (136-145); Total Protein 5.7 g/dL (6.4-8.9); eGFR For African Americans > 60 (> 60); eGFR For Non-African Americans > 60 (> 60)
[2021-04-15] MEDS: Apixaban 5 MG TABLET PO SCH ×2 (13:22→21:06)
[2021-04-15] MEDS: Acetaminophen 325 MG TABLET PO PRN (21:06)
[2021-04-16] MEDS: Metoprolol XL (24 HR) Succ 25 MG TAB.ER.24H PO SCH (09:45)
[2021-04-16] MEDS: amLODIPine 5 MG TABLET PO SCH (09:45)
[2021-04-16] MEDS: polyethylene glycoL 3350 17 GM POWD.PACK PO SCH (09:45)
[2021-04-16] MEDS: Patient Taking Own Medication 1 EACH PO SCH (09:45)
[2021-04-16] MEDS: FLUoxetine 20 MG CAPSULE PO SCH (09:45)
[2021-04-16] MEDS: BuPROPion XL (24 HR) 150 MG TABLET PO SCH (09:45)
[2021-04-16] MEDS: Magnesium Oxide 400 MG TABLET PO SCH ×2 (09:45→20:41)
[2021-04-16] MEDS: Apixaban 5 MG TABLET PO SCH ×2 (09:45→20:40)
[2021-04-16] MEDS: Lactobacillus 1 EACH CAP.SPRINK PO SCH (09:45)
[2021-04-16] MEDS: Tiotropium 10 INH DOSE IH SCH (10:34)
[2021-04-17] MEDS: Apixaban 5 MG TABLET PO SCH ×2 (08:10→20:23)
[2021-04-17] MEDS: BuPROPion XL (24 HR) 150 MG TABLET PO SCH (08:11)
[2021-04-17] MEDS: amLODIPine 5 MG TABLET PO SCH (08:11)
[2021-04-17] MEDS: Magnesium Oxide 400 MG TABLET PO SCH ×2 (08:11→20:25)
[2021-04-17] MEDS: polyethylene glycoL 3350 17 GM POWD.PACK PO SCH (08:11)
[2021-04-17] MEDS: Lactobacillus 1 EACH CAP.SPRINK PO SCH (08:11)
[2021-04-17] MEDS: Metoprolol XL (24 HR) Succ 25 MG TAB.ER.24H PO SCH (08:11)
[2021-04-17] MEDS: FLUoxetine 20 MG CAPSULE PO SCH (08:11)
[2021-04-17] MEDS: Patient Taking Own Medication 1 EACH PO SCH (08:12)
[2021-04-17] MEDS: Tiotropium 10 INH DOSE IH SCH (11:48)
[2021-04-17] MEDS: Benzonatate 100 MG CAPSULE PO PRN (12:22)
[2021-04-18] MEDS: BuPROPion XL (24 HR) 150 MG TABLET PO SCH (09:17)
[2021-04-18] MEDS: FLUoxetine 20 MG CAPSULE PO SCH (09:17)
[2021-04-18] MEDS: Apixaban 5 MG TABLET PO SCH ×2 (09:17→21:33)
[2021-04-18] MEDS: Lactobacillus 1 EACH CAP.SPRINK PO SCH (09:17)
[2021-04-18] MEDS: Metoprolol XL (24 HR) Succ 25 MG TAB.ER.24H PO SCH (09:17)
[2021-04-18] MEDS: Magnesium Oxide 400 MG TABLET PO SCH ×2 (09:18→21:33)
[2021-04-18] MEDS: amLODIPine 5 MG TABLET PO SCH (09:18)
[2021-04-18] MEDS: Patient Taking Own Medication 1 EACH PO SCH (09:18)
[2021-04-18] MEDS: polyethylene glycoL 3350 17 GM POWD.PACK PO SCH (09:23)
[2021-04-18] MEDS: Benzonatate 100 MG CAPSULE PO PRN (09:23)
[2021-04-18] MEDS: Tiotropium 10 INH DOSE IH SCH (10:03)
[2021-04-18] MEDS: Acetaminophen 325 MG TABLET PO PRN (21:34)
[2021-04-19] MEDS: Tiotropium 10 INH DOSE IH SCH (08:06)
[2021-04-19] MEDS: Lactobacillus 1 EACH CAP.SPRINK PO SCH (09:03)
[2021-04-19] MEDS: BuPROPion XL (24 HR) 150 MG TABLET PO SCH (09:04)
[2021-04-19] MEDS: amLODIPine 5 MG TABLET PO SCH (09:04)
[2021-04-19] MEDS: Metoprolol XL (24 HR) Succ 25 MG TAB.ER.24H PO SCH (09:04)
[2021-04-19] MEDS: Magnesium Oxide 400 MG TABLET PO SCH ×2 (09:04→21:39)
[2021-04-19] MEDS: FLUoxetine 20 MG CAPSULE PO SCH (09:04)
[2021-04-19] MEDS: Apixaban 5 MG TABLET PO SCH ×2 (09:04→21:38)
[2021-04-19] MEDS: polyethylene glycoL 3350 17 GM POWD.PACK PO SCH (09:04)
[2021-04-19 09:05] LABS: Hematocrit 35.6 % (35.3-44.9); Hemoglobin 10.8 g/dL (11.5-15.4); Mean Corpuscular HGB Conc 30.3 g/dL (31.6-35.5); Mean Corpuscular Hemoglobin 30.6 pg (28.0-33.3); Mean Corpuscular Volume 100.8 fL (83.0-100.0); Mean Platelet Volume 8.6 fL (9.4-12.4); Platelet Count 395 K/mcL (140-400); Red Blood Count 3.53 M/mcL (3.82-4.97); Red Cell Distribution Width 15.9 % (11.5-14.5); White Blood Count 6.2 K/mcL (4.3-11.1)
[2021-04-19] MEDS: Patient Taking Own Medication 1 EACH PO SCH (09:05)
[2021-04-19 09:37] LABS: Alanine Aminotransferase 7 Units/L (7-52); Albumin 3.1 g/dL (3.5-5.7); Alkaline Phosphatase 64 Units/L (34-104); Aspartate Amino Transferase 17 Units/L (13-39); BUN/Creatinine Ratio 20 (6-26); Bilirubin,Total 0.5 mg/dL (0.3-1.0); Blood Urea Nitrogen 10 mg/dL (8-23); Carbon Dioxide 31 mEq/L (23-29); Chloride 98 mEq/L (98-107); Globulin 3.1 g/dL (2.4-3.5); Glucose 151 mg/dL (70-105); Magnesium 1.6 mg/dL (1.6-2.6); Osmolality,Calculated 282 (280-300); Potassium 4.1 mEq/L (3.5-5.1); Sodium 135 mEq/L (136-145); Total Protein 6.2 g/dL (6.4-8.9); eGFR For African Americans > 60 (> 60); eGFR For Non-African Americans > 60 (> 60)
[2021-04-19] MEDS: Benzonatate 100 MG CAPSULE PO PRN (17:02)
[2021-04-20] MEDS: polyethylene glycoL 3350 17 GM POWD.PACK PO SCH (08:47)
[2021-04-20] MEDS: Apixaban 5 MG TABLET PO SCH ×2 (08:47→21:58)
[2021-04-20] MEDS: FLUoxetine 20 MG CAPSULE PO SCH (08:47)
[2021-04-20] MEDS: BuPROPion XL (24 HR) 150 MG TABLET PO SCH (08:47)
[2021-04-20] MEDS: Magnesium Oxide 400 MG TABLET PO SCH ×2 (08:47→21:57)
[2021-04-20] MEDS: amLODIPine 5 MG TABLET PO SCH (08:47)
[2021-04-20] MEDS: Lactobacillus 1 EACH CAP.SPRINK PO SCH (08:47)
[2021-04-20] MEDS: Metoprolol XL (24 HR) Succ 25 MG TAB.ER.24H PO SCH (08:47)
[2021-04-20] MEDS: Patient Taking Own Medication 1 EACH PO SCH (08:48)
[2021-04-20] MEDS: Benzonatate 100 MG CAPSULE PO PRN (09:05)
[2021-04-20] MEDS: Tiotropium 10 INH DOSE IH SCH (10:19)
[2021-04-20] MEDS: Ondansetron ODT 4 MG TAB.RAPDIS PO PRN (11:50)
[2021-04-20] MEDS: Ergocalciferol (VIT D2) 50,000 UNIT (1.25MG) CAP PO SCH (17:30)
[2021-04-21] MEDS: Magnesium Oxide 400 MG TABLET PO SCH ×2 (07:55→20:01)
[2021-04-21] MEDS: Apixaban 5 MG TABLET PO SCH ×2 (07:55→20:02)
[2021-04-21] MEDS: Lactobacillus 1 EACH CAP.SPRINK PO SCH (07:55)
[2021-04-21] MEDS: BuPROPion XL (24 HR) 150 MG TABLET PO SCH (07:55)
[2021-04-21] MEDS: FLUoxetine 20 MG CAPSULE PO SCH (07:55)
[2021-04-21] MEDS: amLODIPine 5 MG TABLET PO SCH (07:55)
[2021-04-21] MEDS: Metoprolol XL (24 HR) Succ 25 MG TAB.ER.24H PO SCH (07:55)
[2021-04-21] MEDS: Patient Taking Own Medication 1 EACH PO SCH ×2 (07:56→08:00)
[2021-04-21] MEDS: polyethylene glycoL 3350 17 GM POWD.PACK PO SCH (07:56)
[2021-04-21] MEDS: Tiotropium 10 INH DOSE IH SCH (08:02)
[2021-04-21] MEDS: Benzonatate 100 MG CAPSULE PO PRN (17:40)
[2021-04-22] MEDS: polyethylene glycoL 3350 17 GM POWD.PACK PO SCH (07:56)
[2021-04-22] MEDS: Lactobacillus 1 EACH CAP.SPRINK PO SCH (07:57)
[2021-04-22] MEDS: Magnesium Oxide 400 MG TABLET PO SCH ×2 (07:57→20:22)
[2021-04-22] MEDS: Acetaminophen 325 MG TABLET PO PRN (07:57)
[2021-04-22] MEDS: FLUoxetine 20 MG CAPSULE PO SCH (07:57)
[2021-04-22] MEDS: BuPROPion XL (24 HR) 150 MG TABLET PO SCH (07:57)
[2021-04-22] MEDS: Apixaban 5 MG TABLET PO SCH (07:57)
[2021-04-22] MEDS: Metoprolol XL (24 HR) Succ 25 MG TAB.ER.24H PO SCH (07:57)
[2021-04-22] MEDS: amLODIPine 5 MG TABLET PO SCH (07:57)
[2021-04-22] MEDS: Tiotropium 10 INH DOSE IH SCH (10:52)
[2021-04-22] MEDS: Fluticasone Propionate Nasal 50 MCG/SPRAY BOTTLE NS SCH (15:43)
[2021-04-22] MEDS: Benzonatate 100 MG CAPSULE PO PRN (20:27)
[2021-04-23] MEDS: polyethylene glycoL 3350 17 GM POWD.PACK PO SCH (07:47)
[2021-04-23] MEDS: Metoprolol XL (24 HR) Succ 25 MG TAB.ER.24H PO SCH (07:48)
[2021-04-23] MEDS: amLODIPine 5 MG TABLET PO SCH (07:48)
[2021-04-23] MEDS: Magnesium Oxide 400 MG TABLET PO SCH ×2 (07:48→21:03)
[2021-04-23] MEDS: FLUoxetine 20 MG CAPSULE PO SCH (07:48)
[2021-04-23] MEDS: Lactobacillus 1 EACH CAP.SPRINK PO SCH (07:48)
[2021-04-23] MEDS: BuPROPion XL (24 HR) 150 MG TABLET PO SCH (07:48)
[2021-04-23] MEDS: Fluticasone Propionate Nasal 50 MCG/SPRAY BOTTLE NS SCH (07:49)
[2021-04-23] MEDS: Benzonatate 100 MG CAPSULE PO PRN (07:53)
[2021-04-23] MEDS: Patient Taking Own Medication 1 EACH PO SCH (07:57)
[2021-04-23] MEDS: Tiotropium 10 INH DOSE IH SCH (11:53)
[2021-04-23] MEDS: Apixaban 5 MG TABLET PO SCH (21:04)
[2021-04-24] MEDS: Ondansetron ODT 4 MG TAB.RAPDIS PO PRN (10:00)
[2021-04-24] MEDS: Tiotropium 10 INH DOSE IH SCH (10:27)
[2021-04-24] MEDS: Magnesium Oxide 400 MG TABLET PO SCH ×2 (10:35→20:55)
[2021-04-24] MEDS: BuPROPion XL (24 HR) 150 MG TABLET PO SCH (10:35)
[2021-04-24] MEDS: Lactobacillus 1 EACH CAP.SPRINK PO SCH (10:35)
[2021-04-24] MEDS: amLODIPine 5 MG TABLET PO SCH (10:35)
[2021-04-24] MEDS: FLUoxetine 20 MG CAPSULE PO SCH (10:35)
[2021-04-24] MEDS: Metoprolol XL (24 HR) Succ 25 MG TAB.ER.24H PO SCH (10:35)
[2021-04-24] MEDS: Fluticasone Propionate Nasal 50 MCG/SPRAY BOTTLE NS SCH (10:36)
[2021-04-24] MEDS: Apixaban 5 MG TABLET PO SCH ×2 (10:36→20:55)
[2021-04-24] MEDS: polyethylene glycoL 3350 17 GM POWD.PACK PO SCH (10:36)
[2021-04-24] MEDS: Patient Taking Own Medication 1 EACH PO SCH (10:36)
[2021-04-25] MEDS: Acetaminophen 325 MG TABLET PO PRN (06:46)
[2021-04-25] MEDS: polyethylene glycoL 3350 17 GM POWD.PACK PO SCH (09:33)
[2021-04-25] MEDS: Apixaban 5 MG TABLET PO SCH ×2 (09:34→20:44)
[2021-04-25] MEDS: Patient Taking Own Medication 1 EACH PO SCH (09:34)
[2021-04-25] MEDS: Fluticasone Propionate Nasal 50 MCG/SPRAY BOTTLE NS SCH (09:34)
[2021-04-25] MEDS: Metoprolol XL (24 HR) Succ 25 MG TAB.ER.24H PO SCH (09:34)
[2021-04-25] MEDS: Lactobacillus 1 EACH CAP.SPRINK PO SCH (09:34)
[2021-04-25] MEDS: BuPROPion XL (24 HR) 150 MG TABLET PO SCH (09:34)
[2021-04-25] MEDS: FLUoxetine 20 MG CAPSULE PO SCH (09:34)
[2021-04-25] MEDS: Magnesium Oxide 400 MG TABLET PO SCH ×2 (09:34→20:44)
[2021-04-25] MEDS: amLODIPine 5 MG TABLET PO SCH (09:34)
[2021-04-25] MEDS: Tiotropium 10 INH DOSE IH SCH (10:33)
[2021-04-26] MEDS: polyethylene glycoL 3350 17 GM POWD.PACK PO SCH (08:47)
[2021-04-26] MEDS: Lactobacillus 1 EACH CAP.SPRINK PO SCH (08:48)
[2021-04-26] MEDS: Fluticasone Propionate Nasal 50 MCG/SPRAY BOTTLE NS SCH (08:48)
[2021-04-26] MEDS: FLUoxetine 20 MG CAPSULE PO SCH (08:48)
[2021-04-26] MEDS: Metoprolol XL (24 HR) Succ 25 MG TAB.ER.24H PO SCH (08:48)
[2021-04-26] MEDS: BuPROPion XL (24 HR) 150 MG TABLET PO SCH (08:48)
[2021-04-26] MEDS: amLODIPine 5 MG TABLET PO SCH (08:48)
[2021-04-26] MEDS: Apixaban 5 MG TABLET PO SCH ×2 (08:48→23:55)
[2021-04-26] MEDS: Magnesium Oxide 400 MG TABLET PO SCH ×2 (08:48→23:55)
[2021-04-26] MEDS: Patient Taking Own Medication 1 EACH PO SCH (08:48)
[2021-04-26] MEDS: Tiotropium 10 INH DOSE IH SCH (10:46)
[2021-04-26] MEDS: Ondansetron ODT 4 MG TAB.RAPDIS PO PRN (23:53)
[2021-04-27] MEDS: Tiotropium 10 INH DOSE IH SCH (07:06)
[2021-04-27] MEDS: BuPROPion XL (24 HR) 150 MG TABLET PO SCH (07:41)
[2021-04-27] MEDS: Apixaban 5 MG TABLET PO SCH ×2 (07:41→21:10)
[2021-04-27] MEDS: FLUoxetine 20 MG CAPSULE PO SCH (07:41)
[2021-04-27] MEDS: amLODIPine 5 MG TABLET PO SCH (07:42)
[2021-04-27] MEDS: polyethylene glycoL 3350 17 GM POWD.PACK PO SCH (07:42)
[2021-04-27] MEDS: Magnesium Oxide 400 MG TABLET PO SCH ×2 (07:42→21:10)
[2021-04-27] MEDS: Lactobacillus 1 EACH CAP.SPRINK PO SCH (07:42)
[2021-04-27] MEDS: Patient Taking Own Medication 1 EACH PO SCH (07:43)
[2021-04-27] MEDS: Fluticasone Propionate Nasal 50 MCG/SPRAY BOTTLE NS SCH (07:43)
[2021-04-27] MEDS: Metoprolol XL (24 HR) Succ 25 MG TAB.ER.24H PO SCH (12:06)
[2021-04-27] MEDS: Ergocalciferol (VIT D2) 50,000 UNIT (1.25MG) CAP PO SCH ×2 (14:38→17:19)
[2021-04-28] MEDS: Tiotropium 10 INH DOSE IH SCH (06:33)
[2021-04-28] MEDS: polyethylene glycoL 3350 17 GM POWD.PACK PO SCH (08:38)
[2021-04-28] MEDS: BuPROPion XL (24 HR) 150 MG TABLET PO SCH (08:38)
[2021-04-28] MEDS: Lactobacillus 1 EACH CAP.SPRINK PO SCH (08:38)
[2021-04-28] MEDS: Magnesium Oxide 400 MG TABLET PO SCH ×2 (08:38→23:22)
[2021-04-28] MEDS: Apixaban 5 MG TABLET PO SCH ×2 (08:38→23:22)
[2021-04-28] MEDS: amLODIPine 5 MG TABLET PO SCH (08:38)
[2021-04-28] MEDS: Metoprolol XL (24 HR) Succ 25 MG TAB.ER.24H PO SCH (08:38)
[2021-04-28] MEDS: FLUoxetine 20 MG CAPSULE PO SCH (08:38)
[2021-04-28] MEDS: Patient Taking Own Medication 1 EACH PO SCH (08:39)
[2021-04-28] MEDS: Fluticasone Propionate Nasal 50 MCG/SPRAY BOTTLE NS SCH (08:39)
[2021-04-28] MEDS: Acetaminophen 325 MG TABLET PO PRN (23:22)
[2021-04-29 06:06] LABS: Basophils # 0.1 K/mcL (0.0-0.2); Basophils % 0.9 %; Eosinophils # 0.5 K/mcL (0.0-0.6); Eosinophils % 8.1 %; Immature Granulocytes % 0.3 % (0-4); Lymphocytes # 2.2 K/mcL (0.6-4.6); Lymphocytes % 37.3 %; Mean Corpuscular HGB Conc 30.3 g/dL (31.6-35.5); Mean Corpuscular Hemoglobin 30.3 pg (28.0-33.3); Mean Platelet Volume 8.8 fL (9.4-12.4); Monocytes # 0.7 K/mcL (0.0-1.3); Monocytes % 12.4 %; Neutrophils # 2.4 K/mcL (1.6-8.9); Platelet Count 336 K/mcL (140-400); Red Cell Distribution Width 15.6 % (11.5-14.5); White Blood Count 5.8 K/mcL (4.3-11.1)
[2021-04-29 06:30] LABS: Alanine Aminotransferase 6 Units/L (7-52); Albumin 3.2 g/dL (3.5-5.7); Albumin/Globulin Ratio 1.2 (1.1-2.2); Alkaline Phosphatase 45 Units/L (34-104); Aspartate Amino Transferase 11 Units/L (13-39); BUN/Creatinine Ratio 20 (6-26); Bilirubin,Total 0.5 mg/dL (0.3-1.0); Blood Urea Nitrogen 17 mg/dL (8-23); Calcium 8.6 mg/dL (8.6-10.3); Carbon Dioxide 29 mEq/L (23-29); Chloride 104 mEq/L (98-107); Globulin 2.7 g/dL (2.4-3.5); Glucose 94 mg/dL (70-105); Magnesium 1.9 mg/dL (1.6-2.6); Osmolality,Calculated 293 (280-300); Potassium 3.6 mEq/L (3.5-5.1); Sodium 141 mEq/L (136-145); Total Protein 5.9 g/dL (6.4-8.9); eGFR For African Americans > 60 (> 60); eGFR For Non-African Americans > 60 (> 60)
[2021-04-29] MEDS: Tiotropium 10 INH DOSE IH SCH (07:58)
[2021-04-29] MEDS: Apixaban 5 MG TABLET PO SCH ×2 (08:01→22:08)
[2021-04-29] MEDS: Lactobacillus 1 EACH CAP.SPRINK PO SCH (08:01)
[2021-04-29] MEDS: polyethylene glycoL 3350 17 GM POWD.PACK PO SCH (08:01)
[2021-04-29] MEDS: Metoprolol XL (24 HR) Succ 25 MG TAB.ER.24H PO SCH (08:01)
[2021-04-29] MEDS: FLUoxetine 20 MG CAPSULE PO SCH (08:01)
[2021-04-29] MEDS: Magnesium Oxide 400 MG TABLET PO SCH ×2 (08:01→22:08)
[2021-04-29] MEDS: BuPROPion XL (24 HR) 150 MG TABLET PO SCH (08:01)
[2021-04-29] MEDS: Acetaminophen 325 MG TABLET PO PRN ×2 (08:01→22:08)
[2021-04-29] MEDS: amLODIPine 5 MG TABLET PO SCH (08:01)
[2021-04-29] MEDS: Patient Taking Own Medication 1 EACH PO SCH (08:02)
[2021-04-29] MEDS: Fluticasone Propionate Nasal 50 MCG/SPRAY BOTTLE NS SCH (08:02)
[2021-04-30 07:44] VITALS: BP 116/61; PULSE 64; RESP 16; TEMP 98.7
[2021-04-30] MEDS: Tiotropium 10 INH DOSE IH SCH (09:00)
[2021-04-30 09:02] VITALS: O2SAT 97
[2021-04-30] MEDS: Metoprolol XL (24 HR) Succ 25 MG TAB.ER.24H PO SCH (09:46)
[2021-04-30] MEDS: Lactobacillus 1 EACH CAP.SPRINK PO SCH (09:46)
[2021-04-30] MEDS: BuPROPion XL (24 HR) 150 MG TABLET PO SCH (09:46)
[2021-04-30] MEDS: amLODIPine 5 MG TABLET PO SCH (09:46)
[2021-04-30] MEDS: Apixaban 5 MG TABLET PO SCH (09:46)
[2021-04-30] MEDS: polyethylene glycoL 3350 17 GM POWD.PACK PO SCH (09:46)
[2021-04-30] MEDS: FLUoxetine 20 MG CAPSULE PO SCH (09:47)
[2021-04-30] MEDS: Fluticasone Propionate Nasal 50 MCG/SPRAY BOTTLE NS SCH (09:47)
[2021-04-30] MEDS: Magnesium Oxide 400 MG TABLET PO SCH (09:47)
[2021-04-30] MEDS: Patient Taking Own Medication 1 EACH PO SCH (09:49)
== END 2021-04-30 11:50 | disposition home or self-care (01) | DRG 871 ==
LOC: INPGRE 03-10 17:49
PROVIDERS: ADMIT Family Medicine; ATTEND Family Medicine